=== PATIENT | male | born 1975 | race Caucasian/White ===

== ENCOUNTER 2017-06-09 11:20 | Outpatient (CLI) | payer OTHER | END 2017-06-09 11:21 | disposition home or self-care (01) | LOC: LABBT 11:20 | PROVIDERS: ATTEND Neurological Surgery | DX: Z01.818 Encounter for other preprocedural examination (principal); M54.16 Radiculopathy, lumbar region ==

== ENCOUNTER 2017-06-12 07:34 | Day surgery (SDC) | payer OTHER ==
[2017-06-09 11:47] VITALS: BMI 24.1
[2017-06-12] MEDS ORDERED: Bupivacaine PF 0.5% 30 ML VIAL ONE (08:30)
[2017-06-12] MEDS ORDERED: Midazolam HCl 2 mg/2 ml Vial ONE (08:31)
[2017-06-12] MEDS ORDERED: Fentanyl 250 MCG/5 ML VIAL ONE (08:31)
[2017-06-12] MEDS ORDERED: Propofol 200 MG/20 ML VIAL ONE (08:48)
[2017-06-12] MEDS ORDERED: Ondansetron HCl/PF 4 MG/2 ML Vial ONE (08:48)
[2017-06-12] MEDS ORDERED: Glycopyrrolate 0.2 MG/ML 5 ML SYRINGE ONE (08:48)
[2017-06-12] MEDS ORDERED: Lidocaine 1% PF 5 ML VIAL ONE (08:48)
[2017-06-12] MEDS ORDERED: Tamsulosin HCl 0.4 MG CAP ONE (10:10)
[2017-06-12] MEDS ORDERED: Labetalol HCl 100 MG/20 ML VIAL ONE (10:10)
[2017-06-12] MEDS ORDERED: Fentanyl 100 MCG/2 ML VIAL ONE ×2 (10:13→10:28)
[2017-06-12] MEDS ORDERED: Ketorolac Tromethamine 30 MG/ML VIAL ONE (10:35)
[2017-06-12] MEDS ORDERED: Promethazine HCl 25 MG/ML VIAL IM/IV PRN (10:42)
[2017-06-12] MEDS ORDERED: Ondansetron HCl/PF 4 MG/2 ML Vial IVP PRN (10:42)
[2017-06-12] MEDS ORDERED: Non-Formulary Medication 1 EACH PO PRN (10:42)
[2017-06-12] MEDS ORDERED: Ketorolac Tromethamine 30 MG/ML VIAL IM/IV PRN (10:42)
[2017-06-12] MEDS ORDERED: Morphine Sulfate 2 MG/ML SYRINGE SLOW IVP PRN (10:42)
[2017-06-12] MEDS ORDERED: HYDROcodone/Acetaminophen 5/325 mg Tablet ONE (11:24)
--- NOTE | 2017-06-13 08:15 | OP ---
DATE OF PROCEDURE: 06/12/2017 SURGEON: Musa Mujica M.D. TRESTLE BUILDER: Saúl Becerra PA-C INDICATION: Pain. DIAGNOSIS: Left L5 radiculopathy. PROCEDURE: Left L4 discectomy. ANESTHESIA: General. TECHNIQUE: The patient was brought into the operating room and placed under general anesthesia. He was flipped from a supine to a prone position on the operating room table. A linear incision was p lanned over the L4 segment. After prepping and draping and after an appropriate operative pause, th e incision was created. Soft tissues were swept left of midline. A self-retaining retractor was pl aced. A C-arm image was obtained to confirm the appropriate level. Laminectomy was performed along the inferior aspect of L4 and superior aspect of L5. The descending L5 nerve root was mobilized me dially. An extruded disk fragment was identified and removed at the L4 segment until there was comp lete decompression of the descending L5 nerve root. The wound was further irrigated. Hemostasis wa s maintained throughout. The wound was then closed in anatomic layers and a pressure dressing was a pplied. There were no known procedural complications.
== END 2017-06-12 13:40 | disposition home or self-care (01) ==
LOC: SDC 07:34 → EDBD 11:30 → SDC 13:40
PROVIDERS: ATTEND Neurological Surgery
PROC: 0SB20ZZ Excision of Lumbar Vertebral Disc, Open Approach (ICD-10-PCS; principal; 2017-06-12)
PROC: 01NB0ZZ Release Lumbar Nerve, Open Approach (ICD-10-PCS; principal; 2017-06-12)
DX: M54.16 Radiculopathy, lumbar region (principal); G47.33 Obstructive sleep apnea (adult) (pediatric); F17.210 Nicotine dependence, cigarettes, uncomplicated; Z79.891 Long term (current) use of opiate analgesic; Z99.89 Dependence on other enabling machines and devices; Z98.890 Other specified postprocedural states
CPT/HCPCS: 76001; 96374; J1885; J2001; J2250; J2270; J2405; J2704; J3010; S0020